=== PATIENT | male | born 1995 | race Caucasian/White ===

== ENCOUNTER 2020-06-02 08:46 | Emergency (ER) | payer OTHER ==
[~2020-06-02] VITALS: Ht 180.3 cm; Wt 65.8 kg
--- NOTE | 2020-06-02 09:00 | NUR ---
patient came in to the er c/o fever and sorethroat since last night. On room air, breahting evenly and unlabored. connected to the monitor and pulse ox. kept comfortable, will continue to monitor accordingly.
[2020-06-02] MEDS ORDERED: ACETAMINOPHEN ES 500 MG TABLET ONE (09:22)
[2020-06-02] MEDS ORDERED: IBUPROFEN 400 MG TABLET ONE (09:23)
[2020-06-02] MEDS ORDERED: PENICILLIN G BENZATHINE 2.4 MMU/4 ML ML IM ONE (09:23)
[2020-06-02] MEDS: IBUPROFEN 400 MG TABLET PO ONE (09:30)
[2020-06-02] MEDS: PENICILLIN G BENZATHINE 2.4 MMU/4 ML ML IM ONE (09:30)
[2020-06-02] MEDS: ACETAMINOPHEN ES 500 MG TABLET PO ONE (09:30)
--- NOTE | 2020-06-02 10:04 | NUR ---
Patient discharged to home in stable condition. Written and verbal after care instructions given. Patient verbalizes understanding of instruction.
[2020-06-02 10:05] VITALS: BP 119/80
== END 2020-06-02 10:05 | disposition home or self-care (01) ==
LOC: ER 08:47
DX: J02.9 Acute pharyngitis, unspecified (principal); F17.200 Nicotine dependence, unspecified, uncomplicated; Z60.2 Problems related to living alone
CPT/HCPCS: 71045; 96372; 99283; J0558